=== PATIENT | female | born 1995 | race Caucasian/White ===

== ENCOUNTER 2016-10-19 03:16 | Emergency (ER) | payer OTHER ==
[~2016-10-19] VITALS: Ht 162.6 cm; Wt 104.8 kg
[~2016-10-19 03:16] MED LIST: ATARAX,VISTARIL25 MG PO; CIPRO500 MG PO; DEBROX15 ML BOTH EARS; EPIPEN ADU0.3 MG/0.3 IM; FLONASE16 G1 BOTH NARES; JUNEL FE 1-201 EACH; MIRENA52 MG IY; MOBIC15 MG PO; MUCUS ER600 MG PO; NAPROSYN375 MG PO; NAPROSYN500 MG PO; NAPROXEN500 MG PO; NORCO 5/3251 TABLET PO; PEN-VEE K,VEET500 MG PO; PEPCID20 MG PO; PHENERGAN-CODE120 ML PO; PREDNISONE20 MG PO; REGLAN5 MG PO; TESSALON PERLE100 MG PO; ULTRAM50 MG PO; ZOFRAN ODT4 MG PO
[2016-10-19] MEDS ORDERED: PERCOCET 5/31 TABLET PO (04:12)
[2016-10-19] MEDS ORDERED: MOTRIN800 MG PO (04:14)
[2016-10-19 04:39] VITALS: BP 124/87
== END 2016-10-19 04:40 | disposition home or self-care (01) ==
LOC: EME 03:16
PROC: 2W3HX1Z Immobilization of Left Thumb using Splint (ICD-10-PCS; principal; 2016-10-19)
DX: S62.525A Nondisplaced fracture of distal phalanx of left thumb, initial encounter for closed fracture (principal); S60.112A Contusion of left thumb with damage to nail, initial encounter; W23.0XXA Caught, crushed, jammed, or pinched between moving objects, initial encounter; Y92.810 Car as the place of occurrence of the external cause
CPT/HCPCS: 73140; 99281; 99284; S0020